=== PATIENT | female | born 1945 | race Caucasian/White ===

== ENCOUNTER 2020-08-18 15:50 | Observation (INO) ==
[2020-08-18 16:43] LABS: Hematocrit 44.4 % (37.0-47.0); Hemoglobin 14.3 gm/dL (12.5-16.0); Mean Cell Volume 90.4 fl (78-100); Mean Corpuscular Hemoglobin 29.1 pg (27-31); Mean Corpuscular Hgb Conc 32.2 g/dl (32-36); Mean Platelet Volume 9.4 fl (8-12.5); Neutrophil % 89.1 % (42-75.0); Platelet Count 406 K/mm3 (150-450); Red Blood Count 4.91 M/mm3 (4.2-5.4); White Blood Count 14.6 K/mm3 (4.0-10.5)
[2020-08-18] MEDS ORDERED: NORMAL SALINE 1,000 ML IV ONE (16:50)
[2020-08-18] MEDS ORDERED: PROCHLORPERAZINE EDISYLATE 5 MG/ML VIAL IV ONE (16:51)
[2020-08-18] MEDS ORDERED: diphenhydrAMINE HCL 50 MG/ML VIAL IV ONE (16:51)
[2020-08-18] MEDS ORDERED: MORPHINE SULFATE 2 MG/ML DISP.SYRIN IV ONE (16:52)
[2020-08-18 16:57] LABS: Albumin * 3.6 gm/dl (3.4-5.0); Anion Gap 18.6 mmol/L (6.8-13.8); BUN/Creatinine Ratio 21.4 (9.0-21.6); Bilirubin, Total 0.5 mg/dL (0.0-1.1); Ca. Corrected For Albumin 10.5 mg/dL (8.4-10.2); Calcium * 10.5 mg/dL (7.9-10.9); Carbon Dioxide 20.3 mmol/L (24-32.6); Potassium 3.9 mmol/L (3.4-4.6); Total Protein 8.5 gm/dL (6.2-8.2)
[2020-08-18] MEDS ORDERED: PANTOPRAZOLE SODIUM 40 MG/100 ML PIGGYBACK IV ONE ×2 (17:02→22:33)
[2020-08-18] MEDS ORDERED: DIATRIZOATE MEGLUMINE, SODIUM 30 ML BTL PO ONE (17:12)
[2020-08-18 17:20] LABS: Urine Bilirubin 1 mg/dl (NEGATIVE); Urine Blood 50 /ul (NEGATIVE); Urine Ketone 50 mg/dL (NEGATIVE); Urine Nitrite Negative (NEGATIVE); Urine Protein 15 mg/dL (NEGATIVE); Urine Specific Gravity >=1.030 SP.GR. (1.005-1.010); Urine Urobilinogen Normal (NORMAL); Urine pH 5.5 pH (5.0-7.0)
[2020-08-18 17:48] LABS: Urine Appearance Clear (CLEAR); Urine Color Yellow; Urine RBC 0-5 /hpf (0-5); Urine WBC TRACE /hpf (0-5)
[2020-08-18 17:49] LABS: Urine Bacteria 1+; Urine Mucus Few - 1+
--- NOTE | 2020-08-18 19:42 | ERNOTE ---
<Jerome Galeana - Last Filed: 08/18/20 19:56> Abdominal HPI - Narrative Date of Service: 08/18/20 - General Chief Complaint: Abdominal Pain Time Seen by Provider: 08/18/20 16:44 Source: patient Exam Limitations: no limitations - Immun/Allergies/Home Medications Immunizatons: IMMUNIZATION HX Immunizations Up to Date Yes History of Influenza Vaccine Yes Hx Pneumococcal Vaccination Yes Allergies/Adverse Reactions: Allergies aspirin Allergy (Mild, Verified 08/18/20 16:23) Hives celecoxib [From Celebrex] Allergy (Mild, Verified 08/18/20 16:23) Hives Home Medications: HOME MEDICATIONS Cholecalciferol (Vitamin D3) [Vitamin D3] 5,000 unit PO DAILY 11/09/15 [Last Taken Unknown] letrozole 2.5 mg tablet 2.5 mg PO DAILY #90 tab 10/17/19 [Last Taken Unknown] citalopram 20 mg tablet 20 mg PO DAILY #90 tab 10/24/19 [Last Taken Unknown] Pravastatin Sodium 40 mg PO HS 08/18/20 [Last Taken Unknown] - History of Present Illness Narrative: Patient presents to the ED for vomiting and abdominal pain. She relates that she became ill this morning and had nausea and vomiting. Upper abdominal discomfort after vomiting. She relates vomiting hard then noticing some blood in her vomit. No diarrhea. No back pain. No other CP or SOB. Has had episode like this in the past without clear cause. Nausea now. nothing makes this better or worse. Timing: intermittent Quality: moderate Activities at Onset: none Modifying Factors - (Improves): Present: other - nothing Modifying Factors - (Worsens): Present: other - nothing Associated Symptoms: Present: vomiting. Absent: diarrhea-gross blood, diarrhea- mucous Prior Abdominal Problems: Present: similar symptoms Prior Treatment: Absent: recently seen Review of Systems - Review of Systems Constitutional: Absent: fever EYE: Present: no symptoms reported ENT: Absent: sore throat Respiratory: Absent: shortness of breath Cardiology: Absent: chest pain Gastrointestinal/Abdominal: Present: See HPI Genitourinary: Present: See HPI Neurological: Absent: weakness All Other Systems: All systems neg except as marked Medical History (Last Reviewed 08/18/20 @ 19:39 by Jerome Galeana MD) Spinal stenosis (Chronic) Onset Date: Unknown Sciatica (Chronic) Onset Date: Unknown Presbyopia (Chronic) Onset Date: Unknown Osteopenia (Chronic) Onset Date: Unknown Osteoarthritis (Chronic) Onset Date: Unknown Knee pain (Chronic) Onset Date: Unknown Impaired fasting glucose (Chronic) Onset Date: Unknown Hyperlipidemia (Chronic) Onset Date: Unknown Diverticulosis (Chronic) Onset Date: ~11/20/09 Depression (Chronic) Onset Date: ~1990 Colon polyps (Chronic) Onset Date: ~11/20/09 History of; Parvez, multiple polyps found during colonoscopy 11/20/09 Back pain (Chronic) Onset Date: Unknown Asthma (Chronic) Onset Date: ~1955 cold triggers asthma attacks Breast cancer Onset Date: Unknown Right breast T1xN1 Stage IIA, left breast T1aN0 stage IA Surgical History: Surgical History (Last Reviewed 08/18/20 @ 19:39 by Jerome Galeana MD) H/O colonoscopy Onset Date: ~11/20/[address] Hannon; hyperplastic polyp with 1 possible area of dysplasia. Follow with barium enema (recheck every 5 years). FUTURE SCR EENING SHOULD BE WITH BARIUM ENEMA History of ankle surgery Onset Date: ~2003 right ankle repair History of appendectomy Onset Date: ~1969 History of barium enema Onset Date: ~12/07/092014; Diverticular changes mid to lower sigmoid; FUTURE SCREENING SHOULD BE BARIUM ENEMA History of breast biopsy Onset Date: ~12/31/02 03/31/16; '03 Tinguely needle localization right breast, benign. ' ultrasound guided infiltrating ductal carcinoma History of knee surgery Onset Date: ~11/13/15 left arthroscopic, Dr. Mehta History of lumpectomy Onset Date: ~07/06/16 [facility], with bilateral sentinel node biopsy. Right breast invasive ductal carcinoma. Right node positive for mets. Left breast invasive ductal carcinoma. History of steroid therapy Onset Date: ~2002 2011, 12/07/12 Family History: Family History (Last Reviewed 08/18/20 @ 19:39 by Jerome Galeana MD) Father , age 52 Aneurysm Mother , age 82 Diabetes Cancer stomach Sister , age 52 Cancer Non Hodgkins lymphoma Social History: (Last Reviewed 08/18/20 @ 19:39 by Jerome Galeana MD) Social History: adopted: No Marital status: / lives independently: Yes household members: none current occupational status: disabled current occupation: retired Service: No Tobacco: Smoking Status: Former smoker Tobacco: How many years used: 43 how long ago did patient quit smoking: age 61 Alcohol: alcohol intake: current Substance Use: substance use type: does not use Dietary Habits: caffeine: Yes Physical Exam - Physical Exam General Appearance: Present: alert, no apparent distress Head Exam: Present: normal inspection, no evidence of injury Eye Exam: Normal inspection: bilateral, PERRL: bilateral Ears, Nose, Throat: Present: normal ENT inspection Neck: Present: normal inspection Respiratory: Present: no respiratory distress, normal breath sounds, no accessory muscle use, lungs clear Cardiovascular/Chest: Present: regular rate, rhythm Gastrointestinal/Abdominal: Present: normal bowel sounds, soft, other - mild epigastric tenderness to palpation. No guarding or rebound, no peritoneal signs Back Exam: Absent: CVA tenderness (R), CVA tenderness (L) Extremity Exam: Present: normal inspection Neurological Exam: Present: alert, no motor/sensory deficits Skin Exam: Present: normal color, warm/dry Progress - Results and Orders Patient's Lab Results:: I have reviewed the patient's lab results. - Vital Signs Patient's Vital Signs:: I have reviewed the patient's vital signs. Vital Signs: Vital Signs 08/18/20 16:00 08/18/20 18:52 08/18/20 19:22 Temperature 36.1 C Pulse Rate 92 96 85 Respiratory Rate 22 H 28 H 17 Blood Pressure 176/95 H 166/80 H 168/90 H O2 Sat by Pulse Oximetry 93 93 95 - EKG EKG #1 EKG: NSR EKG read: Interp. by me EKG Comments: NSR rate 83. Non-specific, no STEMI noted - X-Ray X-Ray #1 X-Ray: abdomen Interpretation: Interp. by me X-ray Comments: I personally reviewed x-ray images as well as official radiology report - Progress/Reassessment Chief Complaint: Abdominal Pain - Transfer of Care Physician Sign Out: Jerome Galeana Receiving Physician: Shan Pollard Pending Results: CT/MRI results, Labs Departure Clinical Impression: Abdominal discomfort Vomiting Qualifiers: Vomiting type: hematemesis Nausea presence: with nausea Qualified Code(s): K92.0 - Hematemesis GI bleed Qualifiers: GI bleed type/associated pathology: unspecified peptic ulcer Qualified Code(s): K27.4 - Chronic or unspecified peptic ulcer, site unspecified, with hemorrhage - Departure Disposition: Still a patient Condition: Stable <Shan Pollard - Last Filed: 08/19/20 00:51> Abdominal HPI - Immun/Allergies/Home Medications Immunizatons: IMMUNIZATION HX Immunizations Up to Date Yes History of Influenza Vaccine Yes Hx Pneumococcal Vaccination Yes Medical History (Last Reviewed 08/18/20 @ 19:39 by Jerome Galeana MD) Spinal stenosis (Chronic) Onset Date: Unknown Sciatica (Chronic) Onset Date: Unknown Presbyopia (Chronic) Onset Date: Unknown Osteopenia (Chronic) Onset Date: Unknown Osteoarthritis (Chronic) Onset Date: Unknown Knee pain (Chronic) Onset Date: Unknown Impaired fasting glucose (Chronic) Onset Date: Unknown Hyperlipidemia (Chronic) Onset Date: Unknown Diverticulosis (Chronic) Onset Date: ~11/20/09 Depression (Chronic) Onset Date: ~1990 Colon polyps (Chronic) Onset Date: ~11/20/09 History ofFrancisco J Hannon, multiple polyps found during colonoscopy 11/20/09 Back pain (Chronic) Onset Date: Unknown Asthma (Chronic) Onset Date: ~1955 cold triggers asthma attacks Breast cancer Onset Date: Unknown Right breast T1xN1 Stage IIA, left breast T1aN0 stage IA Surgical History: Surgical History (Last Reviewed 08/18/20 @ 19:39 by Jerome Galeana MD) H/O colonoscopy Onset Date: ~11/20/[address] Hannon; hyperplastic polyp with 1 possible area of dysplasia. Follow with barium enema (recheck every 5 years). FUTURE SCREENING SHOULD BE WITH BARIUM ENEMA History of ankle surgery Onset Date: ~2003 right ankle repair History of appendectomy Onset Date: ~1969 History of barium enema Onset Date: ~12/07/092014; Diverticular changes mid to lower sigmoid; FUTURE SCREENING SHOULD BE BARIUM ENEMA History of breast biopsy Onset Date: ~12/31/02 03/31/16; ' Tinguely needle localization right breast, benign. ' ultrasound guided infiltrating ductal carcinoma History of knee surgery Onset Date: ~11/13/15 left arthroscopic, Dr. Mehta History of lumpectomy Onset Date: ~07/06/16 [facility], with bilateral sentinel node biopsy. Right breast invasive ductal carcinoma. Right node positive for mets. Left breast invasive ductal carcinoma. History of steroid therapy Onset Date: ~2002 2011, 12/07/12 Family History: Family History (Last Reviewed 08/18/20 @ 19:39 by Jerome Galeana MD) Father , age 52 Aneurysm Mother , age 82 Diabetes Cancer stomach Sister , age 52 Cancer Non Hodgkins lymphoma Social History: (Last Reviewed 08/18/20 @ 19:39 by Jerome Galeana MD) Social History: adopted: No Marital status: / lives independently: Yes household members: none current occupational status: disabled current occupation: retired Service: No Tobacco: Smoking Status: Former smoker Tobacco: How many years used: 43 how long ago did patient quit smoking: age 61 Alcohol: alcohol intake: current Substance Use: substance use type: does not use Dietary Habits: caffeine: Yes Progress - Results and Orders Patient's Lab Results:: I have reviewed the patient's lab results. - Vital Signs Patient's Vital Signs:: I have reviewed the patient's vital signs. Vital Signs: Vital Signs 08/18/20 16:00 08/18/20 18:52 08/18/20 19:22 Temperature 36.1 C Pulse Rate 92 96 85 Respiratory Rate 22 H 28 H 17 Blood Pressure 176/95 H 166/80 H 168/90 H O2 Sat by Pulse Oximetry 93 93 95 - CT/Ultrasound CT/Ultrasound Narrative: CT abdomen pelvis with contrast: IMPRESSION: 1. No evidence of small bowel obstruction. No free air. No abscess. 2. Nonspecific mesenteric edema in the lower abdomen. 3. Questionable gastritis, gastric ulcer and peptic ulcer disease. Consider correlation with endoscopy. 4. Indeterminant findings involving the right adrenal gland. 5. Indeterminate right lower lung pulmonary nodule. Neoplasm is not excluded. 6. Additional findings and comments are as above. Electronically signed by Setphane Wyatt D.O.. - Progress/Reassessment Progress:: Improved Progress Note-Subjective: 08/18/20 20:40 I spoke with the patient about her CT findings. She is agreeable to admission. I spoke with Dr. Hannon about admission and if he was okay with consulting on this case. He states that he would be willing to consult if Dr. Aragon would admit for observation. I spoke with Dr. Libarnes he agrees with observation admit. Shan Pollard DO, FAAFP
[2020-08-18] MEDS ORDERED: ONDANSETRON HCL/PF 2 MG/ML VIAL IV ONE (21:40)
[2020-08-18] MEDS ORDERED: PROCHLORPERAZINE EDISYLATE 5 MG/ML VIAL IV PRN (22:26)
[2020-08-18] MEDS: PANTOPRAZOLE SODIUM 40 MG in NORMAL SALINE 100 ML IV SCH (22:47)
[2020-08-18] MEDS ORDERED: LABETALOL HCL 5 MG/ML VIAL IV ONE (23:04)
[2020-08-18 23:33] LABS: Hematocrit 40.4 % (37.0-47.0); Hemoglobin 12.9 gm/dL (12.5-16.0); Mean Cell Volume 92.4 fl (78-100); Mean Corpuscular Hemoglobin 29.5 pg (27-31); Mean Corpuscular Hgb Conc 31.9 g/dl (32-36); Mean Platelet Volume 9.5 fl (8-12.5); Platelet Count 353 K/mm3 (150-450); Red Blood Count 4.37 M/mm3 (4.2-5.4); Red Cell Distribution Width 13.9 % (11.5-14.0)
[2020-08-19] MEDS: PANTOPRAZOLE SODIUM 40 MG in NORMAL SALINE 100 ML IV SCH ×3 (03:56→13:42)
[2020-08-19 05:07] LABS: Hematocrit 38.8 % (37.0-47.0); Hemoglobin 12.3 gm/dL (12.5-16.0); Mean Cell Volume 92.2 fl (78-100); Mean Corpuscular Hemoglobin 29.2 pg (27-31); Mean Corpuscular Hgb Conc 31.7 g/dl (32-36); Mean Platelet Volume 9.3 fl (8-12.5); Platelet Count 361 K/mm3 (150-450); Red Blood Count 4.21 M/mm3 (4.2-5.4); White Blood Count 14.6 K/mm3 (4.0-10.5)
[2020-08-19] MEDS: SUCRALFATE 1 G/10 ML UDC PO SCH ×2 (07:47→11:17)
--- NOTE | 2020-08-19 07:56 | HP ---
Chief Complaint - Chief Complaint Date of Service: 08/19/20 Time of Service: 07:37 Chief Complaint: hematemesis History of Present Illness: Dalia Hawkins is a 75 year old white female with PMH of Breast cancer, osteopenia, hyperlipidemia who was admitted on for vomiting blood. On the morning of admission the patient woke feeling nauseated and started having dry heaves. It was initially phlegm, then bilous and the dark colore blood . She says it 1/4 of a cup. In the afternoon she had another episode of hematemsis of same volume and so she went to our ER. She denies abdominal pain, back pain, chest pain. No dark stools. She sasy that she does take Ibuprofen for headache which is about once a month. She was recently started on Alendronate q weekly by [facility] endocrinology and she would get burpings and increased flatulence since starting this medication 3 and 1/2 months ago. Her Hb was initially 14.5 and went down to 12.3. She is Covid negative. Her CTS of the abdomen showed - MPRESSION: 1. No evidence of small bowel obstruction. No free air. No abscess. 2. Nonspecific mesenteric edema in the lower abdomen. 3. Questionable gastritis, gastric ulcer and peptic ulcer disease. Consider correlation with endoscopy. 4. Indeterminant findings involving the right adrenal gland. 5. Indeterminate right lower lung pulmonary nodule. Neoplasm is not excluded. 6. Additional findings and comments are as above. She was admitted for observation and started on protonix drip. Medical History (Last Reviewed 08/18/20 @ 19:39 by Jerome Galeana MD) Spinal stenosis (Chronic) Onset Date: Unknown Sciatica (Chronic) Onset Date: Unknown Presbyopia (Chronic) Onset Date: Unknown Osteopenia (Chronic) Onset Date: Unknown Osteoarthritis (Chronic) Onset Date: Unknown Knee pain (Chronic) Onset Date: Unknown Impaired fasting glucose (Chronic) Onset Date: Unknown Hyperlipidemia (Chronic) Onset Date: Unknown Diverticulosis (Chronic) Onset Date: ~11/20/09 Depression (Chronic) Onset Date: ~1990 Colon polyps (Chronic) Onset Date: ~11/20/09 History of; Parvez, multiple polyps found during colonoscopy 11/20/09 Back pain (Chronic) Onset Date: Unknown Asthma (Chronic) Onset Date: ~1955 cold triggers asthma attacks Breast cancer Onset Date: Unknown Right breast T1xN1 Stage IIA, left breast T1aN0 stage IA Surgical History: Surgical History (Last Reviewed 08/18/20 @ 19:39 by Jerome Galeana MD) H/O colonoscopy Onset Date: ~11/20/[address] Hannon; hyperplastic polyp with 1 possible area of dysplasia. Follow with barium enema (recheck every 5 years). FUTURE SCREENING SHOULD BE WITH BARIUM ENEMA History of ankle surgery Onset Date: ~2003 right ankle repair History of appendectomy Onset Date: ~1969 History of barium enema Onset Date: ~12/07/092014; Diverticular changes mid to lower sigmoid; FUTURE SCREENING SHOULD BE BARIUM ENEMA History of breast biopsy Onset Date: ~12/31/02 03/31/16; ' Tinguely needle localization right breast, benign. ultrasound guided infiltrating ductal carcinoma History of knee surgery Onset Date: ~11/13/15 left arthroscopic, Dr. Mehta History of lumpectomy Onset Date: ~07/06/16 [facility], with bilateral sentinel node biopsy. Right breast invasive ductal carcinoma. Right node positive for mets. Left breast invasive ductal carcinoma. History of steroid therapy Onset Date: ~2002 2011, 12/07/12 Family History: Family History (Last Reviewed 08/18/20 @ 19:39 by Jerome Galeana MD) Father , age 52 Aneurysm Mother , age 82 Diabetes Cancer stomach Sister , age 52 Cancer Non Hodgkins lymphoma Social History: (Last Reviewed 08/18/20 @ 19:39 by Jerome Galeana MD) Social History: adopted: No Marital status: / lives independently: Yes household members: none current occupational status: disabled current occupation: retired Service: No Tobacco: Smoking Status: Former smoker Tobacco: How many years used: 43 how long ago did patient quit smoking: age 61 Alcohol: alcohol intake: current Substance Use: substance use type: does not use Dietary Habits: caffeine: Yes Review Of Systems (GEN) - Review of Systems Generalized/Overall Review: Absent: Weakness, Chills, Fever EENTM: Absent: Blurred Vision Respiratory: Absent: Cough, Shortness of Breath, Orthopnea Cardiac: Absent: Chest Pain, Edema, Palpitations Abdominal: Present: Nausea, Vomiting, Hematemesis. Absent: Abdominal Pain, Constipation, Diarrhea Genitourinary: Absent: Itching, Frequency Musculoskeletal: Absent: Joint Pain, Back Pain Neurological: Absent: Headache Skin: Absent: Lesions, Rash Misc: All systems neg except as marked Immunizations: IMMUNIZATION HX Immunizations Up to Date Yes History of Influenza Vaccine Yes Hx Pneumococcal Vaccination Yes Allergies/Adverse Reactions: Allergies Allergy/AdvReac Type Severity Reaction Status Date / Time aspirin Allergy Mild Hives Verified 08/18/20 16:23 celecoxib [From Celebrex] Allergy Mild Hives Verified 08/18/20 16:23 Home Medications: HOME MEDICATIONS Cholecalciferol (Vitamin D3) [Vitamin D3] 5,000 unit PO DAILY 11/09/15 [Last Taken Unknown] letrozole 2.5 mg tablet 2.5 mg PO DAILY #90 tab 10/17/19 [Last Taken Unknown] citalopram 20 mg tablet 20 mg PO DAILY #90 tab 10/24/19 [Last Taken Unknown] Pravastatin Sodium 40 mg PO HS 08/18/20 [Last Taken Unknown] Exam - Exam Vital Signs: Vital Signs - Last Taken Temp 37.2 C 08/19/20 06:58 Pulse 86 08/19/20 06:58 Resp 16 08/19/20 06:58 BP 144/59 08/19/20 06:58 Pulse Ox 94 08/19/20 06:58 Constitutional: Present: Alert, Oriented x3, Cooperative ENT Exam: Present: hearing grossly normal Eye Exam: bilateral eye: normal inspection, PERRL, EOMI, left eye: conjunctivae pale - slightly pale Neck: Present: supple. Absent: lymphadenopathy (R), lymphadenopathy (L) Respiratory: Present: decreased breath sounds, No rales, No wheezing Cardiovascular/Chest: Present: regular rate, rhythm, no JVD, no murmur Abdomen: Present: Normal bowel sounds, soft, nontender, nondistended, obese Extremity: Present: no pedal edema, no calf tenderness Diagnostic Studies: Abnormal Lab Results 08/18/20 08/18/20 08/18/20 Range/Units 16:36 16:36 16:40 WBC 14.6 H (4.0-10.5) K/mm3 Hgb (12.5-16.0) gm/dL MCHC (32-36) g/dl Immature Gran % (Auto) 0.90 H (0.001-0.429) % Immature Gran # (Auto) 0.13 H (0.000-0.0310) K/mm3 Neutrophils % 89.1 H (42-75.0) % Lymphocytes % 6.8 L (20-51) % Neutrophils # 13.0 H (1.3-6.0) K/mm3 Lymphocytes # 0.99 L (1.5-3.5) k/mm3 Carbon Dioxide 20.3 L (24-32.6) mmol/L Anion Gap 18.6 H (6.8-13.8) mmol/L BUN 25 H (3-23) mg/dL Est GFR (Non-Af Amer) 48 L (60-130) mL/min Random Glucose 196 H (70-110) mg/dL Calcium Adj for Albumin 10.5 H (8.4-10.2) mg/dL ALT 18 L (19-67) U/L Total Protein 8.5 H (6.2-8.2) gm/dL Urine Protein 15 H (NEGATIVE) mg/dL Urine Blood 50 H (NEGATIVE) /ul Urine Bilirubin 1 H (NEGATIVE) mg/dl Urine WBC Trace H (0-5) /hpf Urine Bacteria 1+ H (NONE) Urine Mucus Few - 1+ H (NONE) Gastric Occult Blood 08/18/20 08/18/20 08/19/20 Range/Units 16:52 23:19 05:03 WBC 13.0 H 14.6 H (4.0-10.5) K/mm3 Hgb 12.3 L (12.5-16.0) gm/dL MCHC 31.9 L 31.7 L (32-36) g/dl Immature Gran % (Auto) (0.001-0.429) % Immature Gran # (Auto) (0.000-0.0310) K/mm3 Neutrophils % (42-75.0) % Lymphocytes % (20-51) % Neutrophils # (1.3-6.0) K/mm3 Lymphocytes # (1.5-3.5) k/mm3 Carbon Dioxide (24-32.6) mmol/L Anion Gap (6.8-13.8) mmol/L BUN (3-23) mg/dL Est GFR (Non-Af Amer) (60-130) mL/min Random Glucose (70-110) mg/dL Calcium Adj for Albumin (8.4-10.2) mg/dL ALT (19-67) U/L Total Protein (6.2-8.2) gm/dL Urine Protein (NEGATIVE) mg/dL Urine Blood (NEGATIVE) /ul Urine Bilirubin (NEGATIVE) mg/dl Urine WBC (0-5) /hpf Urine Bacteria (NONE) Urine Mucus (NONE) Gastric Occult Blood Positive H Laboratory Results WBC 14.6 K/mm3 (4.0-10.5) H 08/19/20 05:03 RBC 4.21 M/mm3 (4.2-5.4) 08/19/20 05:03 Hgb 12.3 gm/dL (12.5-16.0) L 08/19/20 05:03 Hct 38.8 % (37.0-47.0) 08/19/20 05:03 MCV 92.2 fl (78-100) 08/19/20 05:03 MCH 29.2 pg (27-31) 08/19/20 05:03 MCHC 31.7 g/dl (32-36) L 08/19/20 05:03 RDW 14.0 % (11.5-14.0) 08/19/20 05:03 Plt Count 361 K/mm3 (150-450) 08/19/20 05:03 MPV 9.3 fl (8-12.5) 08/19/20 05:03 Immature Gran % (Auto) 0.90 % (0.001-0.429) H 08/18/20 16:36 Immature Gran # (Auto) 0.13 K/mm3 (0.000-0.0310) H 08/18/20 16:36 Neutrophils % 89.1 % (42-75.0) H 08/18/20 16:36 Lymphocytes % 6.8 % (20-51) L 08/18/20 16:36 Monocytes % 2.8 % (0.0-9) 08/18/20 16:36 Eosinophils % 0.0 % (0.0-3.0) 08/18/20 16:36 Basophils % 0.4 % (0.0-1.0) 08/18/20 16:36 Nucleated RBC % 0.0 k/mm3 (0-1) 08/18/20 16:36 Neutrophils # 13.0 K/mm3 (1.3-6.0) H 08/18/20 16:36 Lymphocytes # 0.99 k/mm3 (1.5-3.5) L 08/18/20 16:36 Monocytes # 0.4 k/mm3 (0.0-1.0) 08/18/20 16:36 Eosinophils # 0.0 k/mm3 (0.0-0.7) 08/18/20 16:36 Absolute Basophils 0.1 k/mm3 (0.0-0.1) 08/18/20 16:36 Sodium 137 mmol/L (132-142) 08/18/20 16:36 Plasma Sodium 139 mmol/L (130-142) 08/18/20 16:36 Potassium 3.9 mmol/L (3.4-4.6) 08/18/20 16:36 Chloride 102 mmol/L (97-106) 08/18/20 16:36 Carbon Dioxide 20.3 mmol/L (24-32.6) L 08/18/20 16:36 Anion Gap 18.6 mmol/L (6.8-13.8) H 08/18/20 16:36 BUN 25 mg/dL (3-23) H 08/18/20 16:36 Creatinine 1.17 mg/dL (0.4-1.4) 08/18/20 16:36 Est GFR (Non-Af Amer) 48 mL/min (60-130) L 08/18/20 16:36 BUN/Creatinine Ratio 21.4 (9.0-21.6) 08/18/20 16:36 Random Glucose 196 mg/dL (70-110) H 08/18/20 16:36 Calcium 10.5 mg/dL (7.9-10.9) 08/18/20 16:36 Calcium Adj for Albumin 10.5 mg/dL (8.4-10.2) H 08/18/20 16:36 Total Bilirubin 0.5 mg/dL (0.0-1.1) 08/18/20 16:36 AST 15 U/L (0-48) 08/18/20 16:36 ALT 18 U/L (19-67) L 08/18/20 16:36 Alkaline Phosphatase 112 U/L (50-170) 08/18/20 16:36 Troponin I Less than 0.017 ng/mL (0.00-0.10) 08/18/20 16:36 Total Protein 8.5 gm/dL (6.2-8.2) H 08/18/20 16:36 Albumin 3.6 gm/dl (3.4-5.0) 08/18/20 16:36 Amylase 61 U/L (25-115) 08/18/20 16:36 Lipase 128 U/L (73-393) 08/18/20 16:36 Urine Color Yellow 08/18/20 16:40 Urine Appearance Clear (CLEAR) 08/18/20 16:40 Urine pH 5.5 pH (5.0-7.0) 08/18/20 16:40 Ur Specific [place] >=1.030 SP.GR. (1.005-1.010) 08/18/20 16:40 Urine Protein 15 mg/dL (NEGATIVE) H 08/18/20 16:40 Urine Glucose (UA) Negative mg/dL (NEGATIVE) 08/18/20 16:40 Urine Ketones 50 mg/dL (NEGATIVE) 08/18/20 16:40 Urine Blood 50 /ul (NEGATIVE) H 08/18/20 16:40 Urine Nitrate Negative (NEGATIVE) 08/18/20 16:40 Urine Bilirubin 1 mg/dl (NEGATIVE) H 08/18/20 16:40 Urine Ictotest Negative (NEGATIVE) 08/18/20 16:40 Prot Sulfosalicylic Acd Negative mg/dL (0) 08/18/20 16:40 Urine Urobilinogen Normal EU/dl (NORMAL) 08/18/20 16:40 Ur Leukocyte Esterase Negative /ul (NEGATIVE) 08/18/20 16:40 Urine RBC 0-5 /hpf (0-5) 08/18/20 16:40 Urine WBC Trace /hpf (0-5) H 08/18/20 16:40 Ur Epithelial Cells 0-5 /hpf (0-5) 08/18/20 16:40 Urine Bacteria 1+ (NONE) H 08/18/20 16:40 Urine Mucus Few - 1+ (NONE) H 08/18/20 16:40 Urine Culture Comments No culture indicated 08/18/20 16:40 Gastric Occult Blood Positive H 08/18/20 16:52 SARS-CoV-2 (PCR) Not detected (NotDetected) 08/18/20 20:41 Assessment/Plan - Narrative Narrative: Violet was admiited for hematemesis and CTS showed thichening of her gastric mucos- considergastrits/PUD. She was started on Protonix and carafate and kept NPO. Dr. Hannon was called and he is going to see her for possible EGD as inpatient vs outpatient. She likely has UGIB due to the medication - biphosphonate. She does take an NSAID mostly once a month only but still a possibe etiology too. - Assessment/Plan (1) Vomiting Problem: Acute Qualifiers: Vomiting type: hematemesis Nausea presence: with nausea Qualified Code(s): K92.0 - Hematemesis (2) GI bleed Problem: Acute Qualifiers: GI bleed type/associated pathology: unspecified peptic ulcer Qualified Code(s): K27.4 - Chronic or unspecified peptic ulcer, site unspecified, with hemorrhage (3) Breast cancer Problem: Chronic Qualifiers: (4) Osteoarthritis Problem: Chronic Qualifiers: (5) Hyperlipidemia Problem: Chronic Qualifiers: (6) Asthma Problem: Chronic Qualifiers:
[2020-08-19 11:12] LABS: Hematocrit 37.5 % (37.0-47.0); Hemoglobin 11.9 gm/dL (12.5-16.0); Mean Cell Volume 91.9 fl (78-100); Mean Corpuscular Hemoglobin 29.2 pg (27-31); Mean Corpuscular Hgb Conc 31.7 g/dl (32-36); Mean Platelet Volume 9.3 fl (8-12.5); Platelet Count 354 K/mm3 (150-450); Red Blood Count 4.08 M/mm3 (4.2-5.4); Red Cell Distribution Width 14.3 % (11.5-14.0); White Blood Count 14.3 K/mm3 (4.0-10.5)
--- NOTE | 2020-08-19 13:25 | DS ---
(1) Vomiting Problem: Resolved Qualifiers: Vomiting type: hematemesis Nausea presence: with nausea Qualified Code(s): K92.0 - Hematemesis (2) GI bleed Problem: Resolved Qualifiers: GI bleed type/associated pathology: unspecified peptic ulcer Qualified Code(s): K27.4 - Chronic or unspecified peptic ulcer, site unspecified, with hemorrhage (3) Breast cancer Problem: Chronic Qualifiers: (4) Osteoarthritis Problem: Chronic Qualifiers: (5) Hyperlipidemia Problem: Chronic Qualifiers: (6) Asthma Problem: Chronic Qualifiers: Date of Discharge:: 08/19/20 Hospital Course: Dalia Hawkins is a 75 year old white female with PMH of Breast cancer, osteopenia, hyperlipidemia who was admitted on for vomiting blood. On the morning of admission the patient woke feeling nauseated and started having dry heaves. It was initially phlegm, then bilous and the dark colore blood . She says it 1/4 of a cup. In the afternoon she had another episode of hematemsis of same volume and so she went to our ER. She denies abdominal pain, back pain, chest pain. No dark stools. She sasy that she does take Ibuprofen for headache which is about once a month. She was recently started on Alendronate q weekly by [facility] endocrinology and she would get burpings and increased flatulence since starting this medication 3 and 1/2 months ago. Her Hb was initially 14.5 and went down to 12.3. She is Covid negative. Her CTS of the abdomen showed - MPRESSION: 1. No evidence of small bowel obstruction. No free air. No abscess. 2. Nonspecific mesenteric edema in the lower abdomen. 3. Questionable gastritis, gastric ulcer and peptic ulcer disease. Consider correlation with endoscopy. 4. Indeterminant findings involving the right adrenal gland. 5. Indeterminate right lower lung pulmonary nodule. Neoplasm is not excluded. 6. Additional findings and comments are as above. She was admitted for observation and started on protonix drip. Her UGIB is likely medication induced (alendronate). She was told to stop it and also told not to take ibuprofen even if it is only once a month most of the time. She was told to take tylenol if she gets a headache. She remained hemodynamically stable and Hb did not drop anymore siginificantly. She was started on clear liquids then progressed to full liquids and she tolerated them. We will discharge her on a PPI and schedule her an out patient EGD by Dr. Hannon.. Procedures Performed: none Results and Findings: Lab Pending Results 08/18/20 16:36: WBC 14.6 H, RBC 4.91, Hgb 14.3, Hct 44.4, MCV 90.4, MCH 29.1, MCHC 32.2, RDW 14.0, Plt Count 406, MPV 9.4, Immature Gran % (Auto) 0.90 H, Immature Gran # (Auto) 0.13 H, Neutrophils % 89.1 H, Lymphocytes % 6.8 L, Monocytes % 2.8, Eosinophils % 0.0, Basophils % 0.4, Nucleated RBC % 0.0, Neutrophils # 13.0 H, Lymphocytes # 0.99 L, Monocytes # 0.4, Eosinophils # 0.0, Absolute Basophils 0.1 08/18/20 16:36: Sodium 137, Plasma Sodium 139, Potassium 3.9, Chloride 102, Carbon Dioxide 20.3 L, Anion Gap 18.6 H, BUN 25 H, Creatinine 1.17, Est GFR (Non-Af Amer) 48 L, BUN/Creatinine Ratio 21.4, Random Glucose 196 H, Calcium 10.5, Calcium Adj for Albumin 10.5 H, Total Bilirubin 0.5, AST 15, ALT 18 L, Alkaline Phosphatase 112, Total Protein 8.5 H, Albumin 3.6, Amylase 61, Lipase 128 08/18/20 16:36: Troponin I Less than 0.017 08/18/20 16:40: Urine Color Yellow, Urine Appearance Clear, Urine pH 5.5, Ur Specific [place] >=1.030, Urine Protein 15 H, Urine Glucose (UA) Negative, Urine Ketones 50, Urine Blood 50 H, Urine Nitrate Negative, Urine Bilirubin 1 H, Urine Ictotest Negative, Prot Sulfosalicylic Acd Negative, Urine Urobilinogen Normal, Ur Leukocyte Esterase Negative, Urine RBC 0-5, Urine WBC Trace H, Ur Epithelial Cells 0-5, Urine Bacteria 1+ H, Urine Mucus Few - 1+ H, Urine Culture Comments No culture indicated 08/18/20 16:52: Gastric Occult Blood Positive H 08/18/20 20:00: Hgb 13.1 08/18/20 20:41: SARS-CoV-2 (PCR) Not detected 08/18/20 23:19: WBC 13.0 H, RBC 4.37, Hgb 12.9, Hct 40.4, MCV 92.4, MCH 29.5, MCHC 31.9 L, RDW 13.9, Plt Count 353, MPV 9.5 08/19/20 05:03: WBC 14.6 H, RBC 4.21, Hgb 12.3 L, Hct 38.8, MCV 92.2, MCH 29.2, MCHC 31.7 L, RDW 14.0, Plt Count 361, MPV 9.3 08/19/20 11:09: WBC 14.3 H, RBC 4.08 L, Hgb 11.9 L, Hct 37.5, MCV 91.9, MCH 29.2, MCHC 31.7 L, RDW 14.3 H, Plt Count 354, MPV 9.3 Discharge Location: Home Disposition: Home self-care Condition: Stable Discharge Activity: Activity as tolerated Discharge Diet: Other - bland , soft diet Referrals: Nolvia Aragon MD [Primary Care Provider] - Additional Patient Instructions (free text): Please make an appointment with Dr. Hannon for EGD as outpatient- the earlier the better. Follow up with PCP in 1 week. Prescriptions (Any new or edited meds): Omeprazole 40 mg PO DAILY #30 capsule. Transmission Status: Pending to [place], [place] Complete Home Medications List: Complete Home Medication List: Cholecalciferol (Vitamin D3) [Vitamin D3] 5,000 unit PO DAILY 11/09/15 letrozole 2.5 mg tablet 2.5 mg PO DAILY #90 tab 10/17/19 citalopram 20 mg tablet 20 mg PO DAILY #90 tab 10/24/19 Pravastatin Sodium 40 mg PO HS 08/18/20 Omeprazole 40 mg PO DAILY #30 capsule. 08/19/20 Forms: Patient Portal Registration
[2020-08-19 17:18] LABS: Hematocrit 38.6 % (37.0-47.0); Mean Corpuscular Hemoglobin 28.9 pg (27-31); Mean Corpuscular Hgb Conc 31.1 g/dl (32-36); Mean Platelet Volume 9.2 fl (8-12.5); Platelet Count 335 K/mm3 (150-450); Red Blood Count 4.15 M/mm3 (4.2-5.4); Red Cell Distribution Width 14.4 % (11.5-14.0); White Blood Count 11.7 K/mm3 (4.0-10.5)
--- NOTE | 2020-08-19 17:53 | CONS ---
HPI - General Date of Service: 08/19/20 Source: patient, RN/MD, RN notes reviewed, old records Exam Limitations: no limitations - History of Present Illness Initial Comments: She came to the emergency room after an episode of vomiting dark blood. She states it started as a little glob and then she had more. She generally does not have much in the way of heartburn. She does report that several months ago she was started on alendronate once a week for her bones. This is caused a lot of belching and gas. She has not had abdominal pain. She did notice that her stools got very nerissa in color. She also states she has had continuing problems with constipation and would like to talk about that as well. Associated Symptoms: denies symptoms Allergies/Adverse Reactions: Allergies aspirin Allergy (Mild, Verified 08/18/20 16:23) Hives celecoxib [From Celebrex] Allergy (Mild, Verified 08/18/20 16:23) Hives Home Medications: Home Medications Medication Instructions Recorded Last Taken Cholecalciferol (Vitamin D3) 5,000 unit PO DAILY 11/09/15 Unknown [Vitamin D3] letrozole 2.5 mg tablet 2.5 mg PO DAILY #90 tab 10/17/19 Unknown citalopram 20 mg tablet 20 mg PO DAILY #90 tab 10/24/19 Unknown Pravastatin Sodium 40 mg PO HS 08/18/20 Unknown Omeprazole 40 mg PO DAILY #30 capsule. 08/19/20 Unknown Procedures Application of other wound dressing (04/29/02) Closed [percutaneous] [needle] biopsy of breast (12/31/02) Drainage of Right Breast, Percutaneous Approach, Diagnostic (03/31/16) ENDO RECTUM POLYPECTOMY (11/20/09) ENDOSC POLYPECTOMY OF LG INTEST (11/20/09) Excision of Left Knee Joint, Percutaneous Endoscopic Approach (11/13/15) Injection of anesthetic into spinal canal for analgesia (08/05/14) Injection of other agent into spinal canal (08/05/14) Injection of steroid (08/05/14) Open biopsy of breast (12/31/02) Medications - Medications Current Medications: Current Medications Pantoprazole Sodium 40 mg/ (Sodium Chloride) 100 mls @ 20 mls/hr IV Q5H MUNIRA Stop: 08/19/20 23:29 Last Admin: 08/19/20 13:42 Dose: 20 mls/hr Documented by: Sucralfate (Carafate Suspension) 1 g PO ACHS MUNIRA Stop: 09/18/20 07:01 Last Admin: 08/19/20 11:17 Dose: 1 g Documented by: Review of Systems - Review of Systems Generalized/Overall Review: Absent: Chills, Fever EENTM: Present: No Symptoms Reported Respiratory: Absent: Cough, Shortness of Breath Cardiac: Absent: Chest Pain, Palpitations Abdominal: Present: Hematemesis, Constipation. Absent: Abdominal Pain Genitourinary: Present: No Symptoms Reported Musculoskeletal: Present: Joint Pain Neurological: Present: No Symptoms Reported, Other - She only gets occasional headaches for which she does take some ibuprofen, but not often Skin: Present: No Symptoms Reported Endocrine: Present: No Symptoms Reported Physical Examination - Exam Vital Signs: Vital Signs - Last Taken Temp 36.9 C 08/19/20 14:57 Pulse 71 08/19/20 14:57 Resp 20 08/19/20 14:57 BP 113/57 08/19/20 14:57 Pulse Ox 93 08/19/20 14:57 O2 Oxygen Delivery Method Room Air Constitutional: Present: Alert, Oriented x3, Cooperative, Well developed, Well nourished, No distress ENT Exam: Present: normal ENT inspection Neck: Present: normal inspection Respiratory: Present: no respiratory distress Cardiovascular/Chest: Present: regular rate, rhythm Abdomen: Present: obese, other - She denies any abdominal pain or tenderness /Rectal: Present: Exam deferred Extremity: Present: normal range of motion Skin Exam: Present: normal color Neurologic: Present: director furniture II-XII nml as tested, no motor/sensory deficits Appearance: Present: appropriate appearance, appropriate insight, no memory impairment Eye contact: Present: cooperative, good eye contact, normal speech Thoughts: Present: normal thought pattern - Results and Findings: Lab/Microbiology results last 24 hrs: Abnormal/Pending Laboratory Last 24 HRS 08/19/20 08/19/20 08/19/20 17:07 11:09 05:03 WBC 11.7 H 14.3 H 14.6 H RBC 4.15 L 4.08 L Hgb 12.0 L 11.9 L 12.3 L MCHC 31.1 L 31.7 L 31.7 L RDW 14.4 H 14.3 H Urine Protein Urine Blood Urine Bilirubin Urine WBC Urine Bacteria Urine Mucus 08/18/20 08/18/20 23:19 16:40 WBC 13.0 H RBC Hgb MCHC 31.9 L RDW Urine Protein 15 H Urine Blood 50 H Urine Bilirubin 1 H Urine WBC Trace H Urine Bacteria 1+ H Urine Mucus Few - 1+ H - Assessments/Findings (1) GI bleed Diagnosis(s): She does have an area along the lesser curvature the stomach on CT that appears to be possibly heaped ulceration. She was recently started on Fosamax and takes occasional NSAID's. Have an upper GI endoscopy to investigate this. In the meantime she should be on a proton pump inhibitor and avoid taking alendronate or NSAIDs. We will make arrangements for her to be seen in the office to arrange this. She also had some questions about her colon. I reviewed the mechanism of action of Benefiber and MiraLAX with her. She will trial these in the interim and report progress. Case was discussed with both case management and Dr Aragon Problem: Resolved Qualifiers: GI bleed type/associated pathology: unspecified peptic ulcer Qualified Code(s): K27.4 - Chronic or unspecified peptic ulcer, site unspecified, with hemorrhage
[2020-08-19 18:38] VITALS: BP 109/60
== END 2020-08-19 18:55 | disposition home or self-care (01) ==
LOC: ER 15:50 → MS 15:50
PROVIDERS: ADMIT Internal Medicine; ATTEND Internal Medicine
DX: R91.1 Solitary pulmonary nodule; J45.909 Unspecified asthma, uncomplicated; K92.0 Hematemesis; R10.9 Unspecified abdominal pain; Z79.899 Other long term (current) drug therapy; K27.4 Chronic or unspecified peptic ulcer, site unspecified, with hemorrhage; Z87.891 Personal history of nicotine dependence; E78.5 Hyperlipidemia, unspecified